=== PATIENT | male | born 1945 | race Caucasian/White ===

== ENCOUNTER → 2016-08-21 | Outpatient (CLI) | payer OTHER ==
[~2016-08-21] VITALS: Ht 177.8 cm; Wt 95.3 kg
[~2016-08-21] MED LIST: FISH OIL 1,2001 EAC4 PO; GLUCOSAMINE &1 EAC1 PO; HYDROCHLOROTHIA25 M1 PO; LIPITOR10 MG PO; MOBIC15 MG PO; MULTIVITAMINS1 EAC7 PO; VITAMIN D32000 UNI1 PO; ZESTRIL30 MG PO
--- NOTE | ~2016-08-21 | P ---
[facility] [place] [address] PROCEDURE REPORT Name: DEE GUTIERREZ Room #: REG OLENA Rashid#: [id number] Admission: 08/21/16 Attend Phys: Keenan Barker MD Discharge: Date of : 45 Report #: [id number] THIS REPORT FOR: //name// CC: [facility] physician/PCP Ferny Barker DATE OF SERVICE: 08/21/2016 BRIEF HISTORY: The patient is a 70-year-old male who reports he had a colonoscopy 2-3 years ago at which time, a polyp was found and it was done at another facility. He reports he was advised to return in 2-3 years. He does not know specifics about the polyp. He does report some constipation in the past year. PREOPERATIVE DIAGNOSIS: History of colon polyp, possibly an advanced adenoma. POSTOPERATIVE DIAGNOSES: 1. Small to moderate internal hemorrhoids. 2. Narrowing of the mid rectum, benign appearance. MEDICATIONS: Deep sedation with propofol per anesthesia. SPECIMEN: None. ESTIMATED BLOOD LOSS: None. PROCEDURE: Colonoscopy to cecum and terminal ileum. FINDINGS: Prior to propofol sedation, procedure of colonoscopy discussed with the patient as well as potential risks and its complications. He indicates he understands and desires to proceed. DESCRIPTION OF PROCEDURE: With the patient in the lateral decubitus position, digital examination was completed which revealed no abnormalities. Subsequently, the mii video colonoscope was introduced into the rectum, advanced under direct vision to the cecum. Done with minimal difficulty. The cecum was identified by the ileocecal valve and the appendiceal orifice. I was able to visualize the distal segment of terminal ileum, which was inspected and noted to be unremarkable. At that point, the scope was withdrawn and careful circumferential views obtained including retroflexing the scope in the ascending colon. Upon slow withdrawal of the scope, the prep was noted to be excellent. The mucosa was within normal limits, normal vascular pattern, normal light reflex. As we withdrew the scope, the mucosa was within normal limits. No neoplastic lesions were seen. No abnormalities were noted until the rectum was [facility] [address] [place] [address] PROCEDURE REPORT Name: DEE GUTIERREZ Room #: REG OLENA Truong#: [id number] Admission: 08/21/16 Attend Phys: Keenan Barker MD Discharge: Date of : 45 Report #: [id number] reached. In the mid rectum, there was a vague, smooth, symmetrical benign appearing narrowing. The scope passed easily through the area, but it did have appearance of narrowing. Again, the mucosa was normal. Scope was withdrawn in the distal rectum. Upon retroflexion, small to moderate internal hemorrhoids were seen. Scope was withdrawn. The patient tolerated the procedure well. CONDITION OF THE PATIENT UPON DISCHARGE: Following procedure, the patient drowsy, arousable, conversant. He will be discharged home when fully ambulatory. INSTRUCTIONS TO THE PATIENT AND FAMILY AT THE TIME OF DISCHARGE: The patient does not know specific about his polyps, was advised to return in 2-3 years per his report. This history is suggestive of advanced adenoma. In that case, would suggest followup colon exam in 5 years if no new neoplastic lesions were seen. We will attempt to obtain the colon path report from the other institution for review. The appearance of the narrowing in the rectum is somewhat subtle, but in view of his history of constipation in the past year, we will obtain a CT abdomen and pelvis to evaluate for extrinsic lesions. I do not see anything within the lumen of the colon to cause any stricturing or narrowing. He will otherwise return to care of Dr. Ferny Garces. Last colonoscopy approximately 3 years ago per the patient report. Withdrawal time from the cecum was 15 minutes. <ELECTRONICALLY SIGNED> By: Keenan Barker MD 08/22/16 1216 [id number] Keenan Barker MD /nt
== END | disposition home or self-care (01) ==
LOC: GI 08:11
DX: Z09 Encounter for follow-up examination after completed treatment for conditions other than malignant neoplasm (principal); Z86.010 Personal history of colon polyps; K64.8 Other hemorrhoids; I10 Essential (primary) hypertension; E78.00 Pure hypercholesterolemia, unspecified; E03.9 Hypothyroidism, unspecified; Z98.890 Other specified postprocedural states
CPT/HCPCS: 62110; 62900

== ENCOUNTER → 2019-04-08 | Outpatient (CLI) | payer OTHER | LOC: SJCVC 10:31 | DX: R00.1 Bradycardia, unspecified (principal); R06.02 Shortness of breath; I10 Essential (primary) hypertension; E78.5 Hyperlipidemia, unspecified; G47.33 Obstructive sleep apnea (adult) (pediatric); E21.3 Hyperparathyroidism, unspecified ==

== ENCOUNTER → 2019-10-20 | Outpatient (CLI) | payer OTHER | LOC: SJCVCIMAG 09:58 | PROVIDERS: ATTEND Internal Medicine | DX: I08.2 Rheumatic disorders of both aortic and tricuspid valves (principal); I10 Essential (primary) hypertension; E78.5 Hyperlipidemia, unspecified; G47.33 Obstructive sleep apnea (adult) (pediatric); E21.3 Hyperparathyroidism, unspecified; Z79.899 Other long term (current) drug therapy; Z82.49 Family history of ischemic heart disease and other diseases of the circulatory system ==

== ENCOUNTER → 2020-05-03 | Outpatient (CLI) | payer OTHER | LOC: SJCVC 13:54 | PROVIDERS: ATTEND Internal Medicine | DX: R94.31 Abnormal electrocardiogram [ECG] [EKG] (principal); R00.1 Bradycardia, unspecified; I11.0 Hypertensive heart disease with heart failure; I50.32 Chronic diastolic (congestive) heart failure; E78.5 Hyperlipidemia, unspecified; G47.33 Obstructive sleep apnea (adult) (pediatric); E21.3 Hyperparathyroidism, unspecified; Z86.16 Personal history of COVID-19; E78.00 Pure hypercholesterolemia, unspecified; Z79.899 Other long term (current) drug therapy ==

== ENCOUNTER → 2020-05-05 | Outpatient (CLI) | payer OTHER | LOC: RAD 10:47 | PROVIDERS: ATTEND Internal Medicine | DX: G47.33 Obstructive sleep apnea (adult) (pediatric) (principal) ==

== ENCOUNTER → 2020-06-14 | Outpatient (CLI) | payer OTHER | LOC: SJCVC 12:03 | PROVIDERS: ATTEND Internal Medicine | DX: R94.31 Abnormal electrocardiogram [ECG] [EKG] (principal); R00.1 Bradycardia, unspecified; I11.0 Hypertensive heart disease with heart failure; I50.32 Chronic diastolic (congestive) heart failure; E78.5 Hyperlipidemia, unspecified; G47.33 Obstructive sleep apnea (adult) (pediatric); E21.3 Hyperparathyroidism, unspecified; U07.1 COVID-19; E78.00 Pure hypercholesterolemia, unspecified; E03.9 Hypothyroidism, unspecified; Z79.899 Other long term (current) drug therapy ==

== ENCOUNTER → 2020-12-14 | Outpatient (CLI) | payer OTHER | LOC: SJCVC 10:49 | PROVIDERS: ATTEND Internal Medicine | DX: R00.1 Bradycardia, unspecified (principal); I11.0 Hypertensive heart disease with heart failure; I50.32 Chronic diastolic (congestive) heart failure; E78.5 Hyperlipidemia, unspecified; G73.3 Myasthenic syndromes in other diseases classified elsewhere; E21.3 Hyperparathyroidism, unspecified; U07.1 COVID-19; Z79.899 Other long term (current) drug therapy ==